=== PATIENT | male | born 1985 | race Two or more races ===

== ENCOUNTER 2016-11-25 22:45 | Emergency (ER) | payer SELFPAY ==
[~2016-11-25] VITALS: Ht 182.9 cm; Wt 83.0 kg
[2016-11-25 23:05] VITALS: BP 126/60
== END 2016-11-26 01:46 | disposition left against medical advice (07) ==
LOC: EMS 22:47
DX: K92.1 Melena (principal); Z53.21 Procedure and treatment not carried out due to patient leaving prior to being seen by health care provider

== ENCOUNTER 2016-12-23 14:36 | Emergency (ER) | payer OTHER ==
[~2016-12-23] VITALS: Ht 165.1 cm; Wt 75.0 kg
[2016-12-23 18:16] VITALS: BP 118/78
== END 2016-12-23 18:19 | disposition home or self-care (01) ==
LOC: EMS 14:37
DX: K62.89 Other specified diseases of anus and rectum (principal); K92.1 Melena
CPT/HCPCS: 82270; 82271; 99283